=== PATIENT | female | born 1960 | race Caucasian/White ===

== ENCOUNTER 2022-12-20 16:33 | Emergency (ER) | payer OTHER ==
[2022-12-20] MEDS ORDERED: Lidocaine 1% 5 ML VIAL INJECT ONE (16:59)
== END 2022-12-20 17:47 | disposition home or self-care (01) ==
LOC: DL.ED 16:33
DX: S63.286A Dislocation of proximal interphalangeal joint of right little finger, initial encounter (principal); I10 Essential (primary) hypertension; E11.9 Type 2 diabetes mellitus without complications; Z79.84 Long term (current) use of oral hypoglycemic drugs; Z79.82 Long term (current) use of aspirin; Z79.899 Other long term (current) drug therapy; Z91.041 Radiographic dye allergy status; W18.30XA Fall on same level, unspecified, initial encounter
CPT/HCPCS: 26770; 73140-F9; 99282; 99283; J3490